=== PATIENT | female | born 1930 | race Caucasian/White ===

== ENCOUNTER → 2017-03-09 | Outpatient (CLI) | payer MEDICARE ==
[~2017-03-09] MED LIST: ALPHAGAN P5 ML OS; AUGMENTIN875 MG GT; BETIMOL OS; LINZESS PO; MIRALAX119 GM PO; OMEPRAZOLE20 M1 PO; OMEPRAZOLE40 MG; PANTOPRAZOLE SO40 MG PO; Z.0.LEVAQUIN500 MG PO; Z.0.NEXIUM40 MG PO; Z.0.TYLENOL ARTHRI65 PO; Z.0.XALATAN2.5 ML OS; [UNRECOGNIZED DRUG - OTHER] PO
== END ==
LOC: MAMMO 13:44
PROVIDERS: ATTEND Family Medicine
DX: Z12.31 Encounter for screening mammogram for malignant neoplasm of breast (principal)

== ENCOUNTER → 2017-05-03 | Outpatient (CLI) | payer MEDICARE, BC ==
--- NOTE | 2017-05-03 09:47 | Diagnostic Imaging Report ---
PROCEDURE:X-RAY LEFT SHOULDER, COMPLETE COMPARISON:None. INDICATIONS:LEFT SHOULDER PAIN FINDINGS: There are no fractures, dislocations, lytic or blastic lesions. Minimal cortical irregularity is present along the superior aspect of the glenoid. The bones are well-mineralized. The soft-tissues are unremarkable. CONCLUSION: No acute radiographic abnormality. Cortical irregularity along the glenoid may represent remote trauma. Dictated by: Bunny Mortensen M.D. on 05/03/2017 at 9:48 Electronically approved by: Bunny Mortensen M.D. on 05/03/2017 at 9:48
== END ==
LOC: RAD 08:48
PROVIDERS: ATTEND Family Medicine
DX: M25.512 Pain in left shoulder (principal)

== ENCOUNTER → 2017-05-27 | Day surgery (SDC) | payer MEDICARE, BC ==
[2017-05-25 11:55] LABS: BASOPHILS % 0.3 % (0.0-1.0); EOSINOPHILS # (AUTO) 0.1 (0.0-0.4); EOSINOPHILS % 0.9 % (0.0-6.0); HEMATOCRIT 40.6 % (34.2-44.1); HEMOGLOBIN 13.4 g/dL (12.0-16.0); LYMPHOCYTES # (AUTO) 6.7 (1.0-3.2); LYMPHOCYTES % 56.3 % (18.0-39.1); MEAN CORPUSCULAR HEMOGLOBIN 30.6 pg (28-32); MEAN CORPUSCULAR VOLUME 92.7 fL (81-99); MONOCYTES # (AUTO) 1.3 (0.2-0.8); NEUTROPHILS # (AUTO) 3.7 (2.1-6.9); NEUTROPHILS % 31.4 % (38.7-80.0); PLATELET COUNT 202 x10e3/uL (140-360); RED BLOOD COUNT 4.38 x10e6/uL (3.6-5.1); RED CELL DISTRIBUTION WIDTH 13.7 % (11.7-14.4)
[~2017-05-27] MED LIST changes: +GLUCAGON FOR INJ 1 MG VIAL ONE; +LIDOCAINE HCL 2% LOCAL INJ 5 ML SDV VIAL INJ ONE; +PROPOFOL IV EMULSION 10 MG/ML 50 ML VIAL ONE
--- OUTSIDE RECORDS SUMMARY | 2017-05-27 09:07 | XMS REPORT ---
Author [facility] Address Unknown Phone Unavailable Care Team Providers Care Operations Agent Name Role Phone STELLA ARAUJO Unavailable Unavailable Problems This patient has no known problems. Allergies, Adverse Reactions, Alerts This patient has no known allergies or adverse reactions. Medications This patient has no known medications. Results Test Description Test Time Test Comments Text Results Atomic Results Result Comments SHOULDER LEFT COMPLETE [place] [id number] [place] [id number] Patient Name: LACHO CERVANTES MR #: [id number] : 1930 Age/Sex: 87/F Req #: [id number] Adm Physician: Ordered by: STELLA ARAUJO MD Report #: [id number] Location: [facility] Room/Bed: Procedure: [id number] DX/SHOULDER LEFT COMPLETE Exam Date: 05/03/17 Exam Time: 919 REPORT STATUS: Signed PROCEDURE: X- RAY LEFT SHOULDER, COMPLETE COMPARISON: None. INDICATIONS: LEFT SHOULDER PAIN FINDINGS: There are no fractures, dislocations, lytic or blastic lesions. Minimal cortical irregularity is present along the superior aspect of the glenoid. The bones are well-mineralized. The soft- tissues are unremarkable. CONCLUSION: No acute radiographic abnormality. Cortical irregularity along the glenoid may represent remote trauma. Dictated by: Ange Vigil M.D. on 05/03/2017 at 9:48 Electronically approved by: Ange Vigil M.D. on 05/03/2017 at 9:48 Dictated By: ANGE VIGIL MD 7 COPY TO: STELLA ARAUJO MD MAMMOGRAPHY DIGITAL SCR UNI LT [place] [address] Patient Name: LACHO CERVANTES MR #: [id number] : 1930 Age/Sex: 87/F Req #: [id number] Adm Physician: Ordered by: STELLA ARAUJO MD Report #: [id number] Location: MAMMO Room/Bed: Procedure: [id number] MG/MAMMOGRAPHY DIGITAL SCR UNI LT Exam Date: 03/09/17 Exam Time: 1420 REPORT STATUS: Signed # [id number] - [id number] #UNILATERAL LEFT DIGITAL SCREENING MAMMOGRAM WITH CAD : 03/09/2017 CLINICAL: Screening Mammogram. Comparison is made to exams dated: 02/05/2016 mammogram - [facility] and 2014 mammogram - [facility]. Current study contains 2 films. The tissue of the left breast is predominantly fatty. Current study was also evaluated with a Computer Aided Detection (CAD) system. There are benign vascular calcifications and calcifications in the left breast. There are mole markers on the left breast. No significant masses, calcifications, or other findings are seen in the breast. There has been no significant interval change. IMPRESSION: BENIGN There is no mammographic evidence of malignancy. A 1 year screening mammogram is recommended. The patient will be notified by letter of the results. Brenda barth/demian:03/23/2017 13:51:30 Assessment Nurse: Hermila Farias)(Deborah), [facility] letter sent: Compared to Prior B9 Mammogram BI-RADS: 2 Benign Dictated By: BRENDA MASSEY DO 1351 Transcribed By: DEMIAN on 03/23/17 1351 COPY TO: STELLA ARAUJO MD
[2017-05-27 12:40] LABS: WBC,FECAL (FECAL LACTOFERRIN) NEGATIVE (NEGATIVE)
--- NOTE | 2017-05-27 13:00 | Operative Report ---
DATE OF PROCEDURE: May 27, 2017 REFERRING PHYSICIAN: Dev Beltrán MD PROCEDURE PERFORMED 1. Colonoscopy with fulguration of arteriovenous malformations. 2. Polypectomy. 3. Biopsies. INDICATIONS FOR COLONOSCOPY: Is colorectal cancer screening, rectal bleeding, intermittent loose stools. MEDICATION: Patient was done under MAC. Please see anesthesiologist's note. PROCEDURE: With patient in left lateral decubitus position, flexible fiberoptic Olympus colonoscope was inserted into the rectum with ease and advanced all the way to the cecum. Mucosa overlying the cecum appeared to be within normal limits. One polyp was hot biopsied from the ascending colon. The transverse colon appeared to be within normal limits. The left colon revealed some patchy mild to moderate inflammatory changes and random biopsies were obtained. Two polyps were snared from the descending colon. One polyp was snared from the sigmoid colon. Numerous AVMs were noted in the sigmoid colon. Fulguration was carried out with size 10-Slovenian Gold probe. The scope was then retroflexed into the distal rectum and small internal hemorrhoids were noted, none of which was actively bleeding. The scope was then straightened out, the rectosigmoid area as well as the distal rectal area were decompressed. Scope was subsequently withdrawn after securing an adequate stool specimen that was sent for the appropriate stool studies. Patient tolerated the procedure well. IMPRESSION 1. Ascending colon polyp hot biopsied. 2. Mild patchy left-sided colitis. 3. Descending colon polyps snared times 2. 4. Sigmoid colon polyps snared times 1. 5. Sigmoid colon arteriovenous malformations, numerous. Fulguration was carried out with size 10-Slovenian Gold probe. 6. Internal hemorrhoids, none actively bleeding. PLAN: Follow up histology. Follow up stool studies. Initiate Bentyl 10 mg 1 p.o. t.i.d. VSL #3 DS one p.o. b.i.d. There is no need for followup colonoscopy. Job#: [id number] DG cc:DEV BELTRÁN MD
[2017-05-28 09:29] LABS: C DIFFICILE TOXIN A&B AMP PROB NEGATIVE (NEGATIVE)
== END | disposition home or self-care (01) ==
LOC: OR 09:05
PROVIDERS: ATTEND Internal Medicine Gastroenterology
DX: Z12.11 Encounter for screening for malignant neoplasm of colon (principal); D12.2 Benign neoplasm of ascending colon; D17.5 Benign lipomatous neoplasm of intra-abdominal organs; Q27.33 Arteriovenous malformation of digestive system vessel; K51.50 Left sided colitis without complications; K21.9 Gastro-esophageal reflux disease without esophagitis; G62.9 Polyneuropathy, unspecified; R91.8 Other nonspecific abnormal finding of lung field; K64.8 Other hemorrhoids; R03.0 Elevated blood-pressure reading, without diagnosis of hypertension; Z01.810 Encounter for preprocedural cardiovascular examination; Z01.812 Encounter for preprocedural laboratory examination; Z85.3 Personal history of malignant neoplasm of breast; Z85.6 Personal history of leukemia; Z96.659 Presence of unspecified artificial knee joint; Z87.891 Personal history of nicotine dependence; Z80.0 Family history of malignant neoplasm of digestive organs
CPT/HCPCS: 36415; 45384; 45385; 45388; 83630; 83993; 85025; 87045; 87177; 87328; 87493; 88305; 93005; J1610; J2001; 44391; 45378; 45380

== ENCOUNTER → 2017-07-07 | Outpatient (CLI) | payer MEDICARE, BC ==
[~2017-07-07] MED LIST changes: +DIATRIZOATE MEGL/DIATRIZOA SOD 30 ML BTL PO ONE; -GLUCAGON FOR INJ 1 MG VIAL ONE; -LIDOCAINE HCL 2% LOCAL INJ 5 ML SDV VIAL INJ ONE; -PROPOFOL IV EMULSION 10 MG/ML 50 ML VIAL ONE
[2017-07-07 08:16] LABS: BLOOD UREA NITROGEN 19 mg/dL (7-26); BUN/CREATININE RATIO 22 (6-25); CREATININE, SERUM 0.85 mg/dL (0.57-1.11); EST GLOMERULAR FILTRATION RATE > 60 ML/MIN (60-)
--- NOTE | 2017-07-07 12:48 | Diagnostic Imaging Report ---
PROCEDURE: CT ABDOMEN AND PELVIS WITH CONTRAST TECHNIQUE: The abdomen and pelvis were scanned utilizing a multidetector helical scanner from the diaphragm to the lesser trochanter after the IV administration of 100 cc of Isovue 370 and the oral administration of dilute Gastrografin. Coronal and sagittal multiplanar reformations were obtained. COMPARISON: Patients [facility], CT, CT ABDOMEN/PELVIS W, 11/05/2014, 9:57. INDICATIONS: ABDOMEN PAIN FINDINGS: LOWER THORAX: Stable 6 mm calcified granuloma in the right lower lobe. Stable linear opacity in the left lower lobe, consistent with scarring. No consolidation. HEPATOBILIARY: No focal hepatic lesions. No biliary ductal dilatation. The gallbladder is not visualized. SPLEEN: No splenomegaly. PANCREAS: No focal masses or ductal dilatation. ADRENALS: No adrenal nodules. KIDNEYS/URETERS: No hydronephrosis, stones, or solid mass lesions. PELVIC ORGANS/BLADDER: Bladder and uterus are unremarkable. No adnexal masses. PERITONEUM / RETROPERITONEUM: No free air or fluid. LYMPH NODES: * Stable borderline enlarged left para-aortic lymph nodes, which measure 0.9 and 1.1 cm (series 2, images 35 and 36). * Stable left common iliac lymph node measuring 0.9 cm in short axis (series 2 image 46). * Stable mildly enlarged left external iliac lymph node which measures 1.2 cm in short axis (series 2, image 66). * Stable adjacent borderline enlarged left external iliac lymph nodes, which measure 0.9-1.0 cm in short axis (series 2, images 68 and 70). * Stable left external iliac lymph node (series 2, image 53), which measures 1.1 cm in short axis. * Stable borderline enlarged right external iliac node which measures 0.9 cm in short axis (series 2, image 64). * Stable 1.3 cm short axis right external iliac node (series 2, image 68). * Stable 1.0 and 0.7-0.8 cm short axis right external iliac nodes (series 2, image 71 and 73). * Slight interval increase in right inguinal lymph node (series 2, image 79) which measures 1.9 x 1.2 cm and previously measured 1.6 x 1.1 cm. VESSELS: Atherosclerotic calcification of the abdominal aorta and iliac vessels.. GI TRACT: No bowel dilation or evidence of obstruction. No wall thickening. BONES AND SOFT TISSUES: No acute bony abnormalities. No aggressive lytic lesions. Mild degenerative changes in the lumbosacral spine with stable mild left curvature. IMPRESSION: 1. stable appearance of borderline to mildly enlarged. Left periaortic and bilateral pelvic nodes, consistent with patient's diagnosis of CLL. A single right inguinal lymph node is slightly increased in size when compared to prior exam. No new adenopathy. Momo Oliva M.D. Dictated by: Momo Oliva M.D. on 07/07/2017 at 12:50 Electronically approved by: Momo Oliva M.D. on 07/07/2017 at 12:50
== END ==
LOC: CT 07:20
PROVIDERS: ATTEND Internal Medicine Gastroenterology
DX: R10.9 Unspecified abdominal pain (principal)
CPT/HCPCS: 36415; 74177; 82565; 84520

== ENCOUNTER → 2018-06-28 | Outpatient (CLI) | payer MEDICARE, BC ==
[~2018-06-28] MED LIST changes: -DIATRIZOATE MEGL/DIATRIZOA SOD 30 ML BTL PO ONE
--- NOTE | 2018-06-29 08:45 | Diagnostic Imaging Report ---
#[id number] - [id number] #UNILATERAL LEFT DIGITAL DIAGNOSTIC MAMMOGRAM WITH CAD: 06/28/2018 Comparison is made to exams dated: 03/09/2017 mammogram and 02/05/2016 mammogram - [facility]. Current study contains 3 films. There are scattered fibroglandular elements in the left breast. Current study was also evaluated with a Computer Aided Detection (CAD) system. There are benign vascular calcifications and calcifications in the left breast. There are mole markers on the left breast. No significant masses, calcifications, or other findings are seen in the breast. There are enlarged axillary lymph nodes not seen on the 03/09/2017 study due to difference in positioning. Similar appearing enlarged nodes were present on the 02/05/2016 study and therefore are most likely benign. There has been no significant interval change. IMPRESSION: BENIGN There is no mammographic evidence of malignancy. A 1 year screening mammogram is recommended. The patient will be notified by letter of the results. Jonathon Quintana Jr., D.O. cw/:06/28/2018 18:41:43 Yarn Worker: Kaylan EVANS(Dinora)(M), [facility] letter sent: Compared to Prior B9 Mammogram BI-RADS: 2 Benign
== END ==
LOC: MAMMO 13:00
PROVIDERS: ATTEND Internal Medicine
DX: Z85.3 Personal history of malignant neoplasm of breast (principal)